=== PATIENT | male | born 1940 | race Asian ===

== ENCOUNTER 2022-01-28 11:11 | Outpatient (CLI) | payer MEDICARE ==
[2022-01-28 13:09] LABS: Bilirubin Neg (Negative); Blood, Urine 10 (Negative); Clarity Clear (Clear); Glucose, Urine (Dipstick) Normal (Negative); Ketone, Urine Negative (Negative); Leukocyte Negative (Negative); Nitrite Negative (Negative); Protein, Urine (Dipstick) 15 mg/dl (Neg-Trace); Specific Gravity, Urine 1.025 (1.002-1.036); Urobilinogen Normal mg/dL (Less than 2)
[2022-01-28 13:26] LABS: Hemoglobin 10.9 g/dL (13.5-17.5); Mean Corpuscular HGB CONC 31.2 g/dL (32.0-36.0); Mean Corpuscular Hemoglobin 20.3 pg (27.0-33.0); Mean Platelet Volume 10.1 fl (7.4-10.4); Platelet Count 127 10x3/uL (150-450); RBC Distribution Width 16.1 % (11.5-14.5); Red Blood Cell (RBC) Count 5.37 10x6/uL (4.32-5.72); White Blood Cell (WBC) Count 4.3 10x3/uL (3.5-10.5)
[2022-01-28 13:29] LABS: RBC/HPF 0-3 HPF (0-3); Squamous Epithelial 0-3 HPF (0-3); WBC/HPF 0-3 HPF (0-3)
[2022-01-28 13:30] LABS: Bacteria/HPF 1+ HPF (None Seen); Mucous/LPF 1+ LPF (<2+)
[2022-01-28 13:32] LABS: Anion Gap 13 mmol/L (10-20); BUN (Urea Nitrogen) 19 mg/dL (8.4-25.7); Calc. Creatinine Clearance 0 mL/min (70-130); Calcium 9.2 mg/dL (7.8-10.44); Carbon Dioxide 27 mmol/L (23-31); Chloride 107 mmol/L (98-107); Glucose 111 mg/dL (83-110); Potassium 4.5 mmol/L (3.5-5.1); Sodium 142 mmol/L (136-145)
[2022-01-28 13:33] LABS: PTT 27.2 sec (22.0-33.0); Prothrombin Time 11.3 sec (9.5-12.1)
== END 2022-01-28 11:12 | disposition home or self-care (01) ==
LOC: LABBT 11:11
PROVIDERS: ATTEND Urology
DX: Z01.818 Encounter for other preprocedural examination (principal); R31.0 Gross hematuria; N40.1 Benign prostatic hyperplasia with lower urinary tract symptoms; N21.0 Calculus in bladder; Z20.822 Contact with and (suspected) exposure to COVID-19
CPT/HCPCS: 80048; 81001; 85027; 85610; 85730; 87086; 93005; U0003; U0005; 93010

== ENCOUNTER 2022-01-31 09:13 | Observation (INO) | payer MEDICARE ==
[2022-01-30 12:05] VITALS: BMI 23.4
[2022-01-31] MEDS ORDERED: B & O ONE (09:58)
[2022-01-31] MEDS ORDERED: fentaNYL Citrate/PF 100 MCG/2 ML SYRINGE ONE (10:49)
[2022-01-31] MEDS ORDERED: Levofloxacin 500 mg/D5W 100 ml Premix Bag ONE (10:49)
[2022-01-31] MEDS ORDERED: ePHEDrine 50 MG/ML VIAL ONE (11:02)
[2022-01-31] MEDS ORDERED: PROPOFOL 200 MG/20 ML VIAL ONE (11:02)
[2022-01-31] MEDS ORDERED: Ondansetron PF 4 MG/2 ML Vial ONE (11:02)
[2022-01-31] MEDS ORDERED: Lidocaine 1% PF 5 ML VIAL ONE (11:02)
[2022-01-31] MEDS ORDERED: Dexamethasone 20 MG/5 ML VIAL ONE (11:02)
[2022-01-31] MEDS ORDERED: Promethazine HCl 25 MG/ML VIAL IVPB PRN (13:16)
[2022-01-31] MEDS ORDERED: Promethazine HCl 25 MG/ML VIAL IM PRN (13:16)
[2022-01-31] MEDS ORDERED: Ondansetron HCl/PF 4 MG/2 ML Vial IVP PRN (13:16)
[2022-01-31] MEDS ORDERED: Oxybutynin 5 MG TAB PO PRN (13:54)
[2022-01-31] MEDS ORDERED: HYDROcodone/Acetaminophen 5/325 mg Tablet PO PRN (13:54)
[2022-01-31] MEDS ORDERED: hydrALAZINE 20 MG/ML VIAL SLOW IVP PRN (13:54)
[2022-01-31] MEDS ORDERED: Acetaminophen 500 MG TAB PO PRN (13:54)
[2022-01-31] MEDS ORDERED: Morphine 2 MG/ML VIAL SLOW IVP PRN (13:54)
[2022-01-31] MEDS ORDERED: Ondansetron PF 4 MG/2 ML Vial IVP PRN (13:54)
[2022-01-31] MEDS ORDERED: Mag-Al 1200 mg/1200 mg/30 ML UDCUP PO PRN (13:54)
[2022-01-31] MEDS ORDERED: Hyoscyamine Sulfate SL 0.125 mg Tablet SL PRN (13:54)
[2022-01-31] MEDS ORDERED: Phenazopyridine HCl 100 MG TAB PO PRN (14:03)
[2022-01-31] MEDS: Docusate 100 MG CAP PO SCH (21:06)
[2022-02-01] MEDS: Docusate 100 MG CAP PO SCH (09:52)
[2022-02-01 16:34] VITALS: BP 157/87; TEMP 98.3
== END 2022-02-01 17:29 | disposition home or self-care (01) ==
LOC: SDC 09:13 → SJJU 18:46
PROVIDERS: ADMIT Urology; ATTEND Urology
PROC: 0TCB8ZZ Extirpation of Matter from Bladder, Via Natural or Artificial Opening Endoscopic (ICD-10-PCS; principal; 2022-01-31)
PROC: 0VT08ZZ Resection of Prostate, Via Natural or Artificial Opening Endoscopic (ICD-10-PCS; 2022-01-31)
DX: N40.1 Benign prostatic hyperplasia with lower urinary tract symptoms (principal); N21.0 Calculus in bladder; N41.0 Acute prostatitis; N41.1 Chronic prostatitis; N13.8 Other obstructive and reflux uropathy
CPT/HCPCS: 82365; 88300; 88305; 96374; G0378; J1100; J1956; J2405; J2704; J3490